=== PATIENT | female | born 1985 | race Caucasian/White ===

== ENCOUNTER → 2024-01-01 | Outpatient (CLI) | payer BC, OTHER ==
--- NOTE | 2024-01-01 09:20 | US ---
EXAMINATION TYPE: US gallbladder DATE OF EXAM: 01/01/2024 COMPARISON: NONE CLINICAL INDICATION: Female, 38 years old with history of R10.11 RUQ PAIN; Slight RUQ discomfort. TECHNIQUE: Multiple sonographic images of the right upper quadrant are obtained. 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 Intercostal views used. Gallbladder: No stones seen as best visualized today. Wall WNL. Evidence for sonographic Inman's sign: No CBD: wnl as best seen Right Kidney: No hydronephrosis or masses seen as best visualized today. IMPRESSION: No discrete abnormality appreciated.
--- NOTE | 2024-01-01 09:31 | FL ---
ESOPHOGRAM. HISTORY: Dysphagia Esophagram was performed per the air contrast technique. The patient swallowed barium and effervesce nt crystals without difficulty or delay. Esophageal peristalsis and motility appear to be within normal limits. There is no evidence for filling defect, mass or diverticulum. Very small reducible hiatal hernia seen. Subsequently single contrast cervical esophagram was performed which fails demonstrate evidence for a spiration penetration or mass. IMPRESSION: Very small reducible hiatal hernia seen.
== END | disposition home or self-care (01) ==
LOC: RADUSWWP 08:17
PROVIDERS: ATTEND Surgery Plastic and Reconstructive Surgery
DX: K44.9 Diaphragmatic hernia without obstruction or gangrene (principal)
CPT/HCPCS: 74220; 76705

== ENCOUNTER 2024-02-18 06:33 | Day surgery (SDC) | payer OTHER ==
[2024-02-18] MEDS: LACTATED RINGERS 1,000 ML IV SCH (07:14)
[2024-02-18 07:24] VITALS: TEMP 97.1
[2024-02-18] MEDS ORDERED: PROPOFOL 10 MG/ML 20 ML VIAL IV ONE (07:30)
--- NOTE | 2024-02-18 07:37 | P.GSHP ---
History of Present Illness H&P Date: 02/18/24 CHIEF COMPLAINT: GERD HISTORY OF PRESENT ILLNESS: The patient is a 38-year-old female who presents reports gastroesophageal reflux disease. Upper endoscopy was offered for further evaluation and management. PAST MEDICAL HISTORY: Please see list. PAST SURGICAL HISTORY: Please see list. MEDICATIONS: Please see list. ALLERGIES: Please see list. SOCIAL HISTORY: No illicit drug use FAMILY HISTORY: No reports of Crohn disease or ulcerative colitis. REVIEW OF ORGAN SYSTEMS: CONSTITUTIONAL: No reports of fevers or chills. GI: Denies any blood in stools or constipation. PHYSICAL EXAM: VITAL SIGNS: Stable GENERAL: Well-developed and pleasant in no acute distress. HEENT: No scleral icterus. Extraocular movements grossly intact. Moist buccal mucosa. NECK: Supple without lymphadenopathy. CHEST: Unlabored respirations. Equal bilateral excursions. CARDIOVASCULAR: Regular rate and rhythm. Distal 2+ pulses. ABDOMEN: Soft, nondistended. MUSCULOSKELETAL: No clubbing, cyanosis, or edema. ASSESSMENT: 1. Gastroesophageal reflux disease PLAN: 1. Recommend proceeding with an upper endoscopy Past Medical History Past Medical History: Asthma, GERD/Reflux, Hypertension Additional Past Medical History / Comment(s): liver bx for jaudice cause remains unk History of Any Multi-Drug Resistant Organisms: None Reported Past Surgical History: Section, Tonsillectomy, Tubal Ligation Additional Past Surgical History / Comment(s): FX RT ARM Past Anesthesia/Blood Transfusion Reactions: No Reported Reaction, Motion Sickness Smoking Status: Current some day smoker - Past Family History Father Family Medical History: No Reported History Medications and Allergies Home Medications Medication Instructions Recorded Confirmed Type Ezetimibe [Zetia] 10 mg PO DAILY 02/16/24 02/18/24 History Famotidine [Pepcid] 20 mg PO DAILY PRN 02/16/24 02/18/24 History Lansoprazole 30 mg PO DAILY 02/16/24 02/18/24 History Trellegy(Unk) 1 inh INHALATION DIRECTED 02/16/24 02/18/24 History Allergies Allergy/AdvReac Type Severity Reaction Status Date / Time No Known Allergies Allergy Verified 02/18/24 07:07 Surgical - Exam Vital Signs Temp Pulse Resp BP Pulse Ox 97.1 F L 101 H 18 132/61 96 02/18/24 07:00 02/18/24 07:00 02/18/24 07:00 02/18/24 07:00 02/18/24 07:00
--- NOTE | 2024-02-18 07:51 | P.PCN ---
Date of Procedure: 02/18/24 Description of Procedure: PREOPERATIVE DIAGNOSIS: Gastroesophageal reflux disease. Diaphragmatic hiatal hernia Morbid obesity POSTOPERATIVE DIAGNOSIS: Gastroesophageal reflux disease. Morbid obesity. Gastritis. Hypertensive lower esophageal sphincter OPERATION: Esophagogastroduodenoscopy with biopsies along esophagus, antrum and duodenum SURGEON: Yamileth Lewis MD ANESTHESIA: MAC. INDICATIONS: The patient is a 38-year-old female who presents with reflux disease. Benefits and risks of the procedure were described. Informed consent was obtained. DESCRIPTION: The patient was brought into the endoscopy suite and laid in the left lateral decubitus position. An Olympus gastroscope was passed along the posterior oropharynx down to the distal esophagus where the squamocolumnar junction was encountered at 37 cm from the incisors. The stomach was entered and no bile reflux was found. Additional findings are listed below. Biopsies with cold forceps were obtained of the antrum. The first through third portion of the duodenum was examined. Retroflexion of the scope confirmed Hill grade 2 lower esophageal valve. The squamocolumnar junction demonstrated LA grade B erosive esophagitis. The stomach was desufflated. The patient tolerated the procedure well. FINDINGS: Squamocolumnar junction 37 cm from the incisors. Diaphragmatic hiatus at 37 cm. Hill grade 2 lower esophageal valve. LA grade B erosive esophagitis. Biopsies obtained. Biopsies obtained of the duodenum. Chronic gastritis with biopsies obtained. RECOMMENDATIONS: 1. Upper endoscopy as needed. 2. HIDA scan for epigastric abdominal pain 3. May benefit from esophageal manometry 4. Tobacco cessation advised for pre-existing gastroesophageal reflux disease Plan - Discharge Summary Discharge Rx Participant: No New Discharge Prescriptions: Continue Ezetimibe [Zetia] 10 mg PO DAILY Trellegy(Unk) 1 inh INHALATION DIRECTED Lansoprazole 30 mg PO DAILY Famotidine [Pepcid] 20 mg PO DAILY PRN PRN Reason: gerd Discharge Medication List Ezetimibe [Zetia] 10 mg PO DAILY 02/16/24 [History] Famotidine [Pepcid] 20 mg PO DAILY PRN 02/16/24 [History] Lansoprazole 30 mg PO DAILY 02/16/24 [History] Trellegy(Unk) 1 inh INHALATION DIRECTED 02/16/24 [History] Follow up Appointment(s)/Referral(s): Yamileth Lewis MD [STAFF PHYSICIAN] - 03/15/24 4:00 pm Patient Instructions/Handouts: Hiatal Hernia (DC), How to Stop Smoking (DC) Discharge Disposition: HOME SELF-CARE
[2024-02-18 08:17] VITALS: BP 102/60
[2024-02-18 08:18] VITALS: PULSE 81; RESP 17
== END 2024-02-18 08:47 | disposition home or self-care (01) ==
LOC: ORWHC2ENDO 06:33
PROVIDERS: ATTEND Surgery Plastic and Reconstructive Surgery
DX: K29.50 Unspecified chronic gastritis without bleeding (principal); K21.9 Gastro-esophageal reflux disease without esophagitis; E66.01 Morbid (severe) obesity due to excess calories; I10 Essential (primary) hypertension; J45.909 Unspecified asthma, uncomplicated; K22.0 Achalasia of cardia; K44.9 Diaphragmatic hernia without obstruction or gangrene; F17.200 Nicotine dependence, unspecified, uncomplicated; Z79.899 Other long term (current) drug therapy; Z98.51 Tubal ligation status
CPT/HCPCS: 81025; 88305; 43239; J2704